=== PATIENT | male | born 1960 | race Caucasian/White ===

== ENCOUNTER 2024-06-20 09:34 | Emergency (ER) | payer BC ==
[~2024-06-20] VITALS: Ht 182.9 cm; Wt 92.8 kg
[2024-06-20] MEDS ORDERED: AMOX-580 PO (10:12)
[2024-06-20 10:18] VITALS: BP 134/74; PULSE 78; RESP 16; TEMP 97.7; O2SAT 98
== END 2024-06-20 10:20 | disposition home or self-care (01) ==
LOC: ER 09:35
DX: K04.7 Periapical abscess without sinus (principal)
CPT/HCPCS: 99283